=== PATIENT | male | born 1950 | race Caucasian/White ===

== ENCOUNTER 2022-01-22 14:08 | Outpatient (CLI) | payer MEDICARE, SELFPAY | END 2022-01-22 14:09 | disposition home or self-care (01) | LOC: LKVREF 14:09 | PROVIDERS: PCP Emergency Medicine; Visit Provider Emergency Medicine | DX: D50.9 Iron deficiency anemia, unspecified (principal) | CPT/HCPCS: 82728 ==

== ENCOUNTER 2022-05-11 09:19 | Outpatient (CLI) | payer MEDICARE, SELFPAY | END 2022-05-11 09:20 | disposition home or self-care (01) | LOC: NFLDREF 05-12 02:56 | PROVIDERS: PCP Emergency Medicine; Referring Provider Emergency Medicine; Visit Provider Emergency Medicine | DX: R79.89 Other specified abnormal findings of blood chemistry (principal); E78.5 Hyperlipidemia, unspecified; D50.9 Iron deficiency anemia, unspecified; R93.5 Abnormal findings on diagnostic imaging of other abdominal regions, including retroperitoneum; Z12.5 Encounter for screening for malignant neoplasm of prostate | CPT/HCPCS: 80053; 80061; 84153 ==

== ENCOUNTER 2023-10-28 10:45 | Outpatient (RCR) | payer MEDICARE, SELFPAY ==
--- NOTE | 2023-10-26 16:35 | PT.OPE ---
PT [place] Outpatient Eval PT [facility] Out[facility] Eval Start: 10/22/23 12:39 Freq: Status: Active Protocol: Document 10/22/23 12:39 BMS (Rec: 10/22/23 13:34 BMS [id number]) E-signed By Bere Grant PT Physical Therapy Outpatient Evaluation Insurance Information Recert Due Date 01/19/24 Insurance Information/Comments medicare advantage Medical Diagnosis Fusion of spine, cervica lregion M43.22 leg weakness after ACDF C3-5 2020, no radicular sx other symptoms and signs involving the musculoskeletal system R29.898 Treating Diagnosis muscle weakness generalized M62.81 abnormal gait R26.89 Referring MD Lyric Cade Subjective Subjective C3-C7 fusion At night if shift out of comfort zone (~ 20% motion) generally goes away Leaning fose Have tried different pillows, back sleeper, have tried sleeping on right side, can keep head in line and is bertter Derm recommend take ibuprofen for skin cancer removal, so tried it ibuprofen helps me get an extra couple hours of sleep Bladder rfetentionhave to cath neurogenic bladder, if cath can get fuor hours of sleep, with ibuprofen take helps me sleep prescribed anti- inflammatory cream rward makes it wor 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 function of UE has come back able to mow on lawn tractor and with car also [facility] no numb tingle , main sensation feet to knee is cold . Wear compression SPC Last fall few years ago in garage lost About 10 yearsa ago pain in R knee, frayed meniscus, did therapy here, healed enough not bothering, not a problem since surgery. Wear knee pads in on knees, Stamina and leg strength Can walk 100? 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 restricted passive mobility of L LE sony at hip, further assess to differentiate btwn spasticity, rigidity, joint restriction, and tighntess. Strength L hip flexor, quad, and HS 4/5 with tightness through hip Balance & Gait single point cane (SPC) with wide base of support, foot drop but not slap, initial contact mid foot, flat. lack of pushoff. lacks terminal knee ext and hip ext sony on L BALANCE seated with posterior lean, WBOS in standing, NBOS unsteady sit/stand balance EO wide steady, able to correct post LOB however is considerable sway unable tandem balance nor SLS Posture standing WBOS, seated sacral sit unsupported, also noted in chair low guard position for balance Sensation/Reflexes not assessed this date. 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 He reports neck fusion 1993, then plate placed 08/2020 'both from slipped discs'. Per EMR was ACDF C3-C5 complicated by prevertebral fluid August 2020, patient states he was in hospital x 2 months but wasn't until the last week or so he was there that he could really participate in therapies. He did discharge home from hospital in 2020 but has residual effects. He states his upper extremities and above the waist have mostly recovered other than significant restrictions through cspine ROM. Lower extremities he notes are weak, he has limited stamina, can walk ~ 100' then needs to rest or sit due to leg weakness, can stand ~ 5-10 minutes. Balance is also impaired though last fall he reports was a year or 2 ago. 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 He is able to navigate the flight of stairs in his home with aid of B rails that he can use simultaneously. Functional limitations include: standing, walking, LE strength, uneven ground negotiation (lives [place] farm) and neck mobility and pain with sleeping. Patient is appropriate for skilled physical therapy to address above concerns. Initial treatment consisted of strength and balance in sit to stand, patient to work on these ex for 1-2 weeks ( instructed in advancing number of reps and sets) then return for further balance and functional strength instruct. Plan of Care Rehabilitation Potential Good Rehabilitation Potential Comments motivated, stable chronic injury Physical Therapy Goals 1)Pt demo ability ascend/ descend curbs and manuever on uneven ground and small hills on his property without imbalance or increased fall risk using most appropriate assistive device. 2) Pt demo ability to pass balance testing (SLS, DGI, Fukuda etc) out of high fall risk. 3) Pt demo appropriate gait pattern with no evidence of lack of balance with perturbations internal and external for shopping, community ambulation with least restrictive or no gait aid. 4) Patient to demo ability to safely and confidently negotiate curb with no or least restrictive gait aid. 5) Pt will demo 300'-500' ambulation without limp and with best mechanics and balance to decrease risk of fall with community ambulation . Coordination/Communication With Referral Source Treatment Plan/Direct Interventions Gait Training,Manual Therapy, Neuromuscular Re-ed,Self-Care/ Home Management,Therapeutic Activities,Therapeutic Exercises Frequency/Duration 1x/1-2 weeks 12 visits Patient Will Be Discharged From Therapy Completion of LTG(s),Skills Plateau,Independent w/HEP, Independently Progressing Evaluation Billing Untimed Code Treatment Minutes 35 Complexity Low Certification Information Initial Certification Date 10/22/23 Ending Certification Date 01/19/24 Provider Signature Required Yes Provider Signature Shows Agreement With POC & Medical Necessity Physician NPI Number Write NPI# Here Physician Comment/Change : Physician Signature & Date Requested Please Sign/Date Here
== END 2024-02-25 23:59 | disposition home or self-care (01) ==
PROVIDERS: PCP Emergency Medicine; Visit Provider Emergency Medicine
DX: M43.22 Fusion of spine, cervical region (principal); R29.898 Other symptoms and signs involving the musculoskeletal system; M62.81 Muscle weakness (generalized); R26.89 Other abnormalities of gait and mobility; Z51.89 Encounter for other specified aftercare
CPT/HCPCS: 97110; 97112; 97161; 97530

== ENCOUNTER 2024-11-14 23:36 | Emergency (ER) | payer MEDICARE, SELFPAY ==
[2024-11-14 23:40] VITALS: BP 161/92; PULSE 100; RESP 18; TEMP 40.1; O2SAT 95; BMI 32.1
--- NOTE | 2024-11-14 23:55 | ED.GENADULT ---
HPI - General Adult General Chief complaint: Weakness Stated complaint: weakness Time Seen by Provider: 11/14/24 23:54 History of Present Illness HPI narrative: EMS states that pt's called 911 today because of increasing weakness. Pt self caths and has a fever. Pt reports a fall at [facility] today while picking up a new c-pap machine. He states he knew then that he was really weak . Pt has not taken anything for his fever. He self caths. 73-year-old man presenting to the emergency department with concern weakness fall. Noted to have a fever here at 104.1 upon arrival. Surgery in his neck about 30 years ago sounds like for slipped disc and then again 5 years ago. Reports that this resulted in for motor control from the waist down. Also meant that he had to catheterize though is borderline for this he reports. Finds that is much better night sleep if he can catheterize just before going to bed. Today went to chart picker his V PAP machine and had a fall. Historically he gets himself down to the ground quickly, squatting in the fall, and does not believe that he hurt anything. Has had a dry cough for very long time in the thought was that this VPAP with humidified air now might be helpful. No diarrhea. No rashes. No new cough or cold symptoms. Just generally weak. Related Data Home Medications ?Medication ?Instructions ?Recorded ?Confirmed ascorbic acid (vitamin C) 500 mg mg PO 01/22/22 10/24/24 capsule multivitamin 1 tab PO QAM 01/22/22 10/24/24 psyllium husk 0.52 gram capsule 0.52 g PO 01/22/22 10/24/24 zinc sulfate 50 mg zinc (220 mg) 50 mg PO QDAY 01/22/22 10/24/24 capsule (Orazinc) magnesium 200 mg tablet 200 mg PO QDAY PRN 05/14/22 10/24/24 melatonin 3 mg capsule 1 mg PO .Bedtime as needed PRN 05/14/22 10/24/24 tamsulosin 0.4 mg capsule (Flomax) 0.4 mg PO QDAY 05/14/22 10/24/24 ibuprofen 200 mg tablet (Advil) 200 mg PO Q6H PRN 10/13/23 10/24/24 Previous Rx's ?Medication ?Instructions ?Recorded diclofenac sodium 3 % topical gel 1 applic topical BID PRN neck pain 10/13/23 #100 grams cephalexin 500 mg capsule 500 mg PO TID 6 days #18 caps 11/15/24 nirmatrelvir 150 mg (10)-ritonavir See Rx Instructions PO .COMPLEX 11/15/24 100 mg (10) tablets in a dose pack #20 ea (Paxlovid) Allergies Allergy/AdvReac Type Severity Reaction Status Date / Time Shrimp Flavor Allergy Severe Vomiting Uncoded 10/13/23 14:28 Review of Systems Status of ROS: Reports: 6 or more systems reviewed and unremarkable except as noted in History and below [facility] Medical History Leg weakness ?R29.898 - Other symptoms and signs involving the musculoskeletal system (ICD-10) Neck pain ?M54.2 - Cervicalgia (ICD-10) 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 - Flaccid neuropathic bladder, not elsewhere classified (ICD-10) LOVELY on CPAP ?G47.33 - Obstructive sleep apnea (adult) (pediatric) (ICD-10) Neurogenic bladder ?N31.9 - Neuromuscular dysfunction of bladder, unspecified (ICD-10) Cervical vertebral fusion ?M43.22 - Fusion of spine, cervical region (ICD-10) Screening for prostate cancer ?Z12.5 - Encounter for screening for malignant neoplasm of prostate (ICD-10) Iron deficiency anemia ?D50.9 - Iron deficiency anemia, unspecified (ICD-10) History of tear of meniscus of knee joint ?Z87.828 - Personal history of other (healed) physical injury and trauma (ICD-10) History of basal cell carcinoma (BCC) ?Z85.828 - Personal history of other malignant neoplasm of skin (ICD-10) Surgical History Status post cervical spinal arthrodesis ?Z98.1 - Arthrodesis status (ICD-10) History of colonoscopy (10/17/19) ?Z98.890 - Other specified postprocedural states (ICD-10) Family History Father Aneurysm Paternal Grandmother Stroke Mother Lymphoma Other High blood pressure Social History Narrative: non smoker Does not use illicit drugs Occasional alcohol consumption Smoking Status: Never smoker Non-prescribed substance use: denies use Exam Narrative: Exam Narrative: Pleasant. NAD. Does appear tired. Is attentive and the quickly responsive to questioning. Is breathing easily. Lungs appear clear. Oropharynx is without erythema. A little sticky. Cranial nerves 2-12 intact. Neck is supple without lymphadenopathy. Heart in elevated rate and regular rhythm. No murmur noted. Extremities are without edema. Moving all extremities without difficulty. No rash appreciated. Abdomen is soft and nontender. Const: Vital Signs, click to edit/add: Vital Signs - 24 hr 11/14/24 23:40 11/15/24 00:18 11/15/24 00:35 Temperature 104.1 F H 104.1 F H Pulse Rate 96 Pulse Rate [Pulse Oximeter] 100 Respiratory Rate 18 Blood Pressure 150/124 H Blood Pressure [Ri ght Upper Arm] 161/92 H Pulse Oximetry 95 91 Oxygen Delivery Me thod Room Air 11/15/24 00:36 11/15/24 00:37 11/15/24 00:45 Temperature Pulse Rate 96 92 Pulse Rate [Pulse Oximeter] 96 Respiratory Rate 18 Blood Pressure Blood Pressure [Ri ght Upper Arm] 150/124 H Pulse Oximetry 91 90 Oxygen Delivery Me od Room Air 11/15/24 00:47 11/15/24 01:00 11/15/24 01:01 Temperature Pulse Rate 91 89 90 Pulse Rate [Pulse Oximeter] Respiratory Rate Blood Pressure 154/78 H 139/73 Blood Pressure [Ri ght Upper Arm] Pulse Oximetry 90 Oxygen Delivery Ak thod 11/15/24 01:15 11/15/24 01:16 11/15/24 01:29 Temperature 100.4 F H Pulse Rate 90 89 Pulse Rate [Pulse Oximeter] Respiratory Rate Blood Pressure 148/76 H Blood Pressure [Ri ght Upper Arm] Pulse Oximetry 90 90 Oxygen Delivery Me thod 11/15/24 01:30 11/15/24 01:32 11/15/24 01:45 Temperature Pulse Rate 88 87 86 Pulse Rate [Pulse Oximeter] Respiratory Rate Blood Pressure 137/67 Blood Pressure [Ri ght Upper Arm] Pulse Oximetry 90 Oxygen Delivery Ak thod 11/15/24 01:46 11/15/24 02:00 11/15/24 02:01 Temperature Pulse Rate 85 84 84 Pulse Rate [Pulse Oximeter] Respiratory Rate Blood Pressure 129/67 129/66 Blood Pressure [Ri ght Upper Arm] Pulse Oximetry 90 90 91 Oxygen Delivery Me thod 11/15/24 02:15 11/15/24 02:30 11/15/24 02:32 Temperature Pulse Rate 83 82 82 Pulse Rate [Pulse Oximeter] Respiratory Rate Blood Pressure 130/70 Blood Pressure [Ri ght Upper Arm] Pulse Oximetry 91 91 93 Oxygen Delivery Me thod 11/15/24 02:45 11/15/24 03:00 11/15/24 03:01 Temperature Pulse Rate 79 77 78 Pulse Rate [Pulse Oximeter] Respiratory Rate Blood Pressure 132/69 Blood Pressure [Ri ght Upper Arm] Pulse Oximetry 91 92 92 Oxygen Delivery Me thod 11/15/24 03:15 11/15/24 03:30 11/15/24 03:31 Temperature Pulse Rate 76 75 74 Pulse Rate [Pulse Oximeter] Respiratory Rate Blood Pressure 125/63 Blood Pressure [Ri ght Upper Arm] Pulse Oximetry 92 91 91 Oxygen Delivery Me thod 11/15/24 03:45 11/15/24 04:33 Temperature 98.5 F Pulse Rate 74 Pulse Rate [Pulse Oximeter] Respiratory Rate Blood Pressure Blood Pressure [Ri ght Upper Arm] Pulse Oximetry 92 Oxygen Delivery Me thod Documenting provider has reviewed patient's vital signs: yes Course Vital Signs Vital signs: Initial Vital Signs Temperature 104.1 F H 11/14/24 23:40 Temperature Source Temporal Artery Scan 11/14/24 23:40 Pulse Rate 100 11/14/24 23:40 Respiratory Rate 18 11/14/24 23:40 Blood Pressure 161/92 H 11/14/24 23:40 Blood Pressure Mean 115 H 11/14/24 23:40 Blood Pressure Position Semi-Fowlers 11/14/24 23:40 Pulse Oximetry 95 11/14/24 23:40 Oxygen Delivery Method Room Air 11/14/24 23:40 Vital Signs Temperature 104.1 F H 11/14/24 23:40 Pulse Rate 100 11/14/24 23:40 Respiratory Rate 18 11/14/24 23:40 Blood Pressure 161/92 H 11/14/24 23:40 Pulse Oximetry 95 11/14/24 23:40 Oxygen Delivery Method Room Air 11/14/24 23:40 Temperature 98.5 F 11/15/24 04:33 Pulse Rate 74 11/15/24 03:45 Respiratory Rate 18 11/15/24 00:37 Blood Pressure 125/63 11/15/24 03:31 Pulse Oximetry 92 11/15/24 03:45 Oxygen Delivery Method Room Air 11/15/24 00:37 Medications Administered Medications: Discontinued Medications Generic Name Dose Route Start Last Admin Trade Name Stuart PRN Reason Stop Dose Admin Acetaminophen 1,000 mg 11/15/24 00:12 11/15/24 00:18 Acetaminophen 500 Mg Tablet PO 11/15/24 00:13 1,000 mg ONCE ONE Administration Acetaminophen 1,000 mg 11/15/24 06:01 11/15/24 06:17 Acetaminophen 500 Mg Tablet PO 11/15/24 06:02 1,000 mg ONCE ONE Administration Sodium Chloride 1,000 mls @ 1,000 mls/hr 11/15/24 00:34 11/15/24 04:33 0.9 % Sodium Chloride 1000 Ml IV 11/15/24 01:33 Infused .Q1H ONE Infusion Ceftriaxone Sodium 1 gm/ 100 mls @ 200 mls/hr 11/15/24 05:36 11/15/24 06:34 Sodium Chloride IVPB 11/15/24 05:37 Infused ONCE ONE Infusion Medical Decision Making [facility] Narrative Medical decision making narrative: Weakness any could be related to anemia or arrhythmia but with fever up on arrival would look for infectious source. Sepsis remains in differential. Course check for urinary source. Established IV. Collect blood cultures. Received acetaminophen here along with L of fluids initially. Labs are generally reassuring though with lymphocytic suppression. Creatinine is slightly elevated at 1.7. GFR 42. CRP a little elevated 1.9; lactate is normal. COVID positive. Thankfully vitals improved with resolution of fever. Rested comfortably with stable oximetry. Oxygen saturations did depressed a little bit low as I think 88% while sleeping at inconsistent with this sleep apnea. Does alert easily. With cough history in mild depression of O2 sats, did obtain a chest x-ray which by my independent review of one-view chest showed maybe some bilateral hilar area congestion/fullness. Do not appreciate discrete infiltrate at this point. Urinalysis finally obtained does look positive for infection; nitrite positive. I do not think though that the urine is the source of the fever that we saw here today and most likely this is COVID rather than representing infection-related sepsis. No further evidence of SIRS or sepsis Radiology over-read of chest x-ray below Indication: Fever and cough. Technique: Chest 1 view. Comparison: Chest x-ray 11/02/2020. Findings/Impression: The heart is not abnormally enlarged. Mediastinal contours are grossly within normal limits. Patchy bilateral airspace opacification may reflect developing infectious process. No pleural effusion or pneumothorax. No acute osseous abnormality. Dictated by Ady Toribio MD @ 11/15/2024 12:56:41 AM Notes that he feels much better. Feels well to return home at this point. Offering Paxlovid. GFR would indicate should be dosed ?moderate?. Takes minimal medication and the only want to consider I think with relation to Paxlovid is tamsulosin. Will also treat for apparent urinary tract infection. Did give initial dose of ceftriaxone in the emergency department. See patient discharge plan for further discussion Stay well-hydrated with water. Control fever with ibuprofen or acetaminophen. I am prescribing Paxlovid for your COVID. During the time you are taking Paxlovid, please take your tamsulosin only every other day. would be to quarantine for 10 days from 1st symptom. Consider doing a home COVID test at that point to confirm clearing. Prescribing cephalexin for what appears to be a urinary tract infection as well. Urine and blood cultures are pending here. We will call you if other action needs to be taken. Return for escalating/uncontrolled fever, persistent and increasing weakness, increasing shortness of breath. Medical Records Medical records reviewed: Yes I reviewed the patient's medical records Lab Data Lab results reviewed: Yes I reviewed the patient's lab results Labs: Lab Results 11/14/24 11/15/24 11/15/24 Range/Units 00:00 00:20 04:15 WBC 6.45 (4.50-11.00) K/uL RBC 4.16 L (4.30-5.90) m/uL Hgb 13.7 (13.5-17.5) gm/dL Hct 40.7 (37.0-53.0) % MCV 98 (80-100) fL MCH 33 (26-34) pg MCHC 34 (32-36) gm/dL RDW Coeff of Faustina 12.0 (11.5-15.5) % Plt Count 103 L (140-440) K/uL Neut % (Auto) 67.5 (42.0-72.0) % Lymph % (Auto) 13.3 L (20-44) % [place] % (Auto) 18.1 H (0.0-11.0) % Eos % (Auto) 0.2 (0.0-7.0) % Baso % (Auto) 0.3 (0.0-3.0) % Neut # (Auto) 4.35 (1.7-7.0) K/uL Lymph # (Auto) 0.90 (0.90-2.90) K/uL [place] # (Auto) 1.20 H (0.00-0.90) K/UL Eos # (Auto) 0.01 (0.00-0.50) K/uL Baso # (Auto) 0.02 (0.00-0.30) K/uL Abs Immat Gran (auto) 0.04 (0.00-0.30) K/uL Imm/Tot Granulo (auto) 0.6 % Sodium 140 (135-149) mmol/L Potassium 4.0 (3.6-5.1) mmol/L Chloride 109 (96-114) mmol/L Carbon Dioxide 22 (20-32) mmol/L Anion Gap 9 (7-15) mEq/L BUN 29 (7-30) mg/dL Creatinine 1.7 H (0.5-1.5) mg/dL Estimated Creat Clear 39.99 Estimated GFR 42 ml/min Glucose 102 (60-115) mg/dL Lactate 0.8 (0.5-1.9) mmol/L Calcium 8.8 (8.4-10.6) mg/dL C-Reactive Protein 1.9 H (0.5-1.0) mg/dL Urine Color Yellow (Yellow) Urine Appearance Cloudy A (Clear) Urine pH 5.5 (5.0-8.5) Ur Specific [place] 1.020 (1.000-1.030) Urine Protein 2+ A (Negative) Urine Glucose (UA) Negative (Negative) Urine Ketones Trace A (Negative) Urine Blood 2+ A (Negative) Urine Nitrite Positive A (Negative) Urine Bilirubin Negative (Negative) Urine Urobilinogen 0.2 (0.2-1.0) Ur Leukocyte Esterase 2+ A (Negative) Urine RBC 2-5 A (0-2) Urine WBC 25-50 A (0-5) Ur Squamous Epith Cells Few (None-Few) Amorphous Sediment Few A (None) Urine Bacteria Many A (None) Urine Mucus Few A (None) Urine Yeast Moderate A (None) SARS-CoV-2 (PCR) POSITIVE SARS-CoV-2 A (Negative) Influenza Type A (PCR) Negative PCR FLU A (Negative) Influenza Type B (PCR) Negative PCR FLU B (Negative) Discharge Plan Discharge Clinical Impression: COVID, Acute UTI Patient Disposition: Home w/ Parent or Adult Condition: Improved Additional Instructions: Stay well-hydrated with water. Control fever with ibuprofen or acetaminophen. I am prescribing Paxlovid for your COVID. During the time you are taking Paxlovid, please take your tamsulosin only every other day. would be to quarantine for 10 days from 1st symptom. Consider doing a home COVID test at that point to confirm clearing. Prescribing cephalexin for what appears to be a urinary tract infection as well. Urine and blood cultures are pending here. We will call you if other action needs to be taken. Return for escalating/uncontrolled fever, persistent and increasing weakness, increasing shortness of breath. Prescriptions: New Paxlovid 150 mg (10)- 100 mg (10) tablets,dose pack See Rx Instructions .ROUTE .COMPLEX Qty: 20 0RF Rx Instructions: orally per package directions cephalexin 500 mg capsule 500 mg PO TID 6 Days Qty: 18 0RF No Action psyllium husk 0.52 gram capsule 0.52 g PO multivitamin Tablet 1 tab PO QAM ascorbic acid (vitamin C) 500 mg capsule PO zinc sulfate [Orazinc] 50 mg zinc (220 mg) capsule 50 mg PO QDAY magnesium 200 mg tablet 200 mg PO QDAY PRN tamsulosin [Flomax] 0.4 mg capsule 0.4 mg PO QDAY melatonin 3 mg capsule 1 mg PO .Bedtime as needed PRN ibuprofen [Advil] 200 mg tablet 200 mg PO Q6H PRN diclofenac sodium 3 % gel 1 applic topical BID PRN (Reason: neck pain ) Qty: 100 0RF Follow Up/Referrals: Lyric Cade MD [Staff Physician, Family Practice] Stand Alone Forms: [employer] Info Instructions
[2024-11-15] VITALS (28 sets, daily range): BP systolic 125–154; BP diastolic 63–124; PULSE 74–96; RESP 18; TEMP 36.9–40.1; O2SAT 90–93
[2024-11-15] MEDS: ACETAMINOPHEN 500 MG TABLET 1000 MG PO ×2 (00:18→06:17)
[2024-11-15 00:28] LABS: Lactate Sepsis w/Reflex* 0.8 mmol/L (0.5-1.9)
[2024-11-15 00:32] LABS: Hematocrit* 40.7 % (37.0-53.0); Hemoglobin* 13.7 gm/dL (13.5-17.5); Immature Granulocytes Abs Auto 0.04 K/uL (0.00-0.30); Immature Granulocytes Pct Auto 0.6 %; Mean Corpuscular HGB Conc 34 gm/dL (32-36); Mean Corpuscular Hemoglobin 33 pg (26-34); Mean Corpuscular Volume 98 fL (80-100); RDW Coefficient of Variation % 12.0 % (11.5-15.5); Red Blood Count* 4.16 m/uL (4.30-5.90); White Blood Count* 6.45 K/uL (4.50-11.00)
[2024-11-15 00:33] LABS: Lymphocytes Absolute Auto 0.90 K/uL (0.90-2.90); Slide Review Reflex No
--- NOTE | 2024-11-15 00:38 | CRLHL7_ITS ---
For Patients: As a result of the Cures Act, medical imaging exams and procedure reports are released immediately into your electronic medical record. You may view this report before your referring provider. If you have questions, please contact your health care provider. Indication: Fever and cough. Technique: Chest 1 view. Comparison: Chest x-ray 11/02/2020. Findings/Impression: The heart is not abnormally enlarged. Mediastinal contours are grossly within normal limits. Patchy bilateral airspace opacification may reflect developing infectious process. No pleural effusion or pneumothorax. No acute osseous abnormality. Dictated by Ady Toribio MD @ 11/15/2024 12:56:41 AM (Electronically Signed)
[2024-11-15 00:41] LABS: PCR FLU A Negative PCR FLU A (Negative); PCR FLU B Negative PCR FLU B (Negative); SARS PCR* POSITIVE SARS-CoV-2 (Negative)
--- OUTSIDE RECORDS SUMMARY | 2024-11-15 00:42 | XMS_ITS | Encounter Summary ---
Author Organization [place] Address [facility] [place] [address] Care Team Providers Care Embosser Apprentice Name Role Phone Prashant Carlson MD Unavailable [phone] Mimi Frank MD Unavailable [phone] Milan Salinas MD Unavailable Humble Dyer MD Unavailable [phone] Lyric Cade MD Primary Care Provider + [phone] Humble Dyer MD Unavailable [phone] Encounter Details Date Type Department Care Team (Late st Contact Info) Description 03/27/2024 MyC Medical Advice [facility] [place] [address] [place] [address] Lucrecia Benavidez Social History Tobacco Use Types Packs/Day Years Used Date Smoking Tobacco: Never Smokeless Tobacco: Never Alcohol Use Standard Drinks/Week Comments Yes 0 (1 standard drink = 0.6 oz pur e alcohol) once a week PHQ-2 Answer Date Recorded PHQ-2 Score 0 02/18/2022 Adolescent Education Answer Date Record ed Getting School Help Needed Not on file 11/07 Sex and Gender Information Value Date Recorded Sex Assigned at Male 10/04/2020 8:41 AM CDT Legal Sex Male 12:10 AM CDT Gender Identity Male 10/04/2020 8:41 AM CDT Sexual Orientation Straight 10/04/2020 8: 41 AM CDT documented as of this encounter Plan of Treatment Not on file documented as of this encounter Visit Diagnoses Not on filedocumented in this encounter Care Teams Embosser Apprentice Relationship Specialty Start Date End Date Lyric Cade MD [facility] [address] [place] [address] PCP - General Family Medicine 03/30/22 Prashant Carlson MD [address] [place] [address] [id number] Urology 10/23/20 Mimi Frank MD [address] [place] [address] Referring Physician Physical Medicine and Rehabilitation 10/23/20 Milan Salinas MD [address] [place] [address] Gastroenterology 01/13/21 Humble Dyer MD [address] [address] Urology 01/26/22 Humble Dyer MD [address] [place] [address] Assigned Surgical Provider 04/04/22 documented as of this encounter
--- OUTSIDE RECORDS SUMMARY | 2024-11-15 00:42 | XMS_ITS | Encounter Summary ---
Author Organization [place] Address [address] [place] [address] Care Team Providers Care Sash Installer Name Role Phone Prashant Carlson MD Unavailable [phone] Mimi Frank MD Unavailable [phone] Milan Salinas MD Unavailable Humble Dyer MD Unavailable [phone] Lyric Cade MD Primary Care Provider + [phone] Humble Dyer MD Unavailable [phone] Encounter Details Date Type Department Care Team (Late st Contact Info) Description 02/07/2024 MyC [facility] Social History Tobacco Use Types Packs/Day Years [...] on filedocumented in this encounter Care Teams Sash Installer Relationship Specialty Start Date End Date Lyric Cade MD [facility] [address] [place] [address] PCP - General Family Medicine 03/30/22 Prashant Carlson MD [address] [place] [address] Urology 10/23/20 Mimi Frank MD [address] [place] [address] Referring Physician Physical Medicine and Rehabilitation 10/23/20 Milan Salinas MD [address] [place] [address] Gastroenterology 01/13/21 Humble Dyer MD [address] [address] Urology 01/26/22 Humble Dyer MD [address] [place] [address] Assigned Surgical Provider 04/04/22 documented as of this encounter
--- OUTSIDE RECORDS SUMMARY | 2024-11-15 00:42 | XMS_ITS ---
Author Organization [facility] ([facility]) Address [address], [place] [address] Care Team Providers Care Route Driver Salesperson Name Role Phone Unavailable Unavailable Unavailable Allergies, Adverse Reactions, Alerts This patient has no known allergies or adverse reactions. Problems This patient has no known problems.
--- OUTSIDE RECORDS SUMMARY | 2024-11-15 00:42 | XMS_ITS | Encounter Summary ---
Author Organization [place] Address [address] [place] [address] Care Team Providers Care Medical Insurance Claims Processor Name Role Phone Prashant Carlson MD Unavailable [phone] Mimi Frank MD Unavailable [phone] Milan Salinas MD Unavailable Humble Dyer MD Unavailable [phone] Lyric Cade MD Primary Care Provider + [phone] Humble Dyer MD Unavailable [phone] Encounter Details Date Type Department Care Team (Late st Contact Info) Description 02/07/2024 MyC Medical [facility]ice [facility] Social History Tobacco Use Types Packs/Day [...] on filedocumented in this encounter Care Teams Medical Insurance Claims Processor Relationship Specialty Start Date End Date Lyric Cade MD [facility] [address] [place] [address] PCP - General Family Medicine 03/30/22 Prashant Carlson MD [address] [place] [address] Urology 10/23/20 Mimi Frank MD [address] [place] [address] Referring Physician Physical Medicine and Rehabilitation 10/23/20 Milan Salinas MD [address] [place] [address] Gastroenterology 01/13/21 Humble Dyer MD [address] [address] Urology 01/26/22 Humble Dyer MD [address] [place] [address] Assigned Surgical Provider 04/04/22 documented as of this encounter
--- OUTSIDE RECORDS SUMMARY | 2024-11-15 00:42 | XMS_ITS | Clinical Summary ---
Author Organization [place] Address [address] [place] [address] Care Team Providers Care Business Loan Processor Name Role Phone Prashant Carlson MD Unavailable [phone] Miim Frank MD Unavailable [phone] Milan Salinas MD Unavailable GomezHumble mariscal MD Unavailable Lyric Cade MD Primary Care Provider [phone] Humble Dyer MD Unavailable [phone] Allergies Active Allergy Reactions Criticality Noted Date Comments Shrimp GI Disturbance 08/26/2020 Shrimp Flavor Agent (Non-Screening) High 11/02/2020 Other reaction(s): vomitting/upset stomach Medications miconazole (MICATIN) 2 % external powderIndicatio ns:H/O cervical spine surgery,Cervica l myelopathy (H) Apply topically 2 times daily as needed for other or itching (redness) 71 g 1 Active VITRON-C 65-125 MG TABS tablet Take 1 tablet by mouth daily 1 Active melatonin 5 MG tablet Take 5 mg by mouth nightly as needed for sleep Active pantoprazole (PROTONIX) 40 MG EC tabletIndicatio ns:Gastrointest inal hemorrhage associated with duodenal ulcer Take 1 tablet (40 mg) by mouth daily Please do not stop this medication. Take 40-60 min before breakfast. 90 tablet 3 Active Additional Information Patient not taking.Reported on 02/18/2022 ibuprofen (ADVIL/MOTRIN) 200 MG tablet Take 200 mg by mouth every 4 hours as needed for pain Active Active Problems Problem Noted Date Diagnosed Date Abnormal computerized axial tomography of abdome n 11/07/2020 Herpes zoster 11/07/2020 History of basal cell carcinoma (BCC) 11/07/2020 History of tear of meniscus of knee joint 2020 Hyperlipidemia 11/07/2020 Sepsis 11/07/2020 Status post cervical spinal arthrodesis 11/08/19 Obstructive sleep apnea jamison chaz with continuous positive airway pressure (CPAP) 11/07/2020 H/O cervical spine surgery 09/16/2020 Post op infection 09/10/2020 Leukocytosis 09/03/2020 Diarrhea 09/03/2020 Fever 09/02/2020 Cervical myelopathy 09/01/2020 Cervical stenosis of spinal canal 08/27/2020 Overview (08/27/2020): Added automatically from request for surgery [id number] Shortness of breath 08/26/2020 Hypoxia 08/26/2020 Bilateral arm weakness 08/26/2020 History of colonoscopy 10/17/2019 Tubular adenoma of colon 10/17/2019 Arthritis 07/20/2012 Sleep apnea 06/02/2006 Resolved Problems Problem Noted Date Diagnosed Date Resolved Date S/P cervical spinal fusion 12/12/2020 1 04/06/2020 Immunizations Immunization Administration Dates Next Due Pneumo Conj 13-V (2010&after) 11/01/2019 TDAP (Adacel,Boostrix) 06/15/2016 Family History Medical History Relation Comments Lymphoma Mother Relation Status Comments Mother Social History Tobacco Use Types Packs/Day Years Used Date Smoking Tobacco: Never Smokeless Tobacco: Never Tobacco Cessation:Counseling Given: Not Answered Alcohol Use Standard Drinks/Week Comments Yes 0 (1 standard drink = 0.6 oz pur e alcohol) once a week PHQ-2 Answer Date Recorded PHQ-2 Score 0 07/17/2024 Adolescent Education Answer Date Record ed Getting School Help Needed Not on file 11/07 Sex and Gender Information Value Date Recorded Sex Assigned at Male 10/04/2020 8:41 AM CDT Legal Sex Male 12:10 AM CDT Gender Identity Male 10/04/2020 8:41 AM CDT Sexual Orientation Straight 10/04/2020 8: 41 AM CDT Last Filed Vital Signs Vital Sign Reading Time Taken Comments Blood Pressure 148/72 07/17/2024 3:30 PM CDT Pulse 75 07/19/2023 11:20 AM CDT Temperature 36.9 C (98.4 F) 11/07/2020 8:56 AM CDT Respiratory Rate 18 03/10/2021 12:49 PM HEARING AID DISPENSER Oxygen Saturation 96% 02/18/2022 9:55 AM HEARING AID DISPENSER Inhaled Oxygen Concentration - - Weight 104.3 kg (230 lb) 07/17/2024 3:30 PM CDT Height 180.3 cm (5' 11) 07/19/2023 11:20 AM CDT Body Mass Index 32.08 07/19/2023 11:20 AM CDT Plan of Treatment Health Maintenance Due Date Last Done Comments ANNUAL REVIEW OF HM ORDERS 1948 CT COLONOGRAPHY 1948 FLEX SIG 1948 LIPID 1948 sDNA (Cologuard) 1948 COLONOSCOPY 1958 HEPATITIS C SCREENING 1966 ZOSTER VACCINE (1 of 2) 1998 FALL RISK ASSESSMENT 2013 MEDICARE ANNUAL WELLNESS VISIT 2013 PNEUMOCOCCAL VACCINE 50+ YEARS (2 of 2 - PCV20 or PCV21) 10/31/2020 11/01/2019 COLORECTAL CANCER SCREENING 09/23/2021 FIT 09/23/2021 09/23/2020 RSV VACCINE (1 - 1-dose 75+ series) 11/29/2023 COVID-19 VACCINE ( - season) 2024 INFLUENZA VACCINE (#1) 2024 ADVANCE CARE PLANNING 09/20/2025 09/20/2020, 021 DTAP/TDAP/TD VACCINE (2 - Td or Tdap) 06/15/2026 06/15/2016 DIABETES SCREENING 07/18/2027 07/17/2024, 0 10/21/2020, 10/14/2020, Additional history exists PHQ-2 (once per calendar year) Completed 07/17/2024, 02/18/2022, 11/07/2020, Additional history exists HPV VACCINE (No Doses Required) Completed MENINGITIS VACCINE Aged Out No longer eligible based on patient's age to complete this topic Medical Devices Implanted Type Area Leak Operator Paraffin Plant Device Identifier Shelf Expiration Date Model / Serial / Lot Graft Bone Fibers Otero Dbm Dbf 1ml [id number] - [id number] Implanted:Qty : 1 on 08/28/2020 by Jayson Garcia MD at [facility] Bone/Tissue /Biologic N/A: Spine Cervical [employer] 05/20/2022 [id number] / [id number] / Imp Spacer Medt Cervical Anatomic Peek Ptc [id number] - [id number] Implanted:Qty : 1 on 08/28/2020 by Jayson Garcia MD at [facility] Metallic Hardware/An chor N/A: Spine Cervical [employer] 10/18/2027 [id number] / / [id number] Imp Spacer Medt Cervical Anatomic Peek Ptc [id number] - [id number] Implanted:Qty : 1 on 08/28/2020 by Jayson Garcia MD at [facility] Metallic Hardware/An chor N/A: Spine Cervical [employer] 10/18/2027 [id number] / / [id number] Imp Plate Cerv Medt Zevo 39mm 2 Lvl [id number] - [id number] Implanted:Qty : 1 on 08/28/2020 by Jayson Garcia MD at [facility] Metallic Hardware/An chor N/A: Spine Cervical [employer] [id number] / / [id number] Imp Scr Medt Zevo 3.5x15mm St Va [id number] - [id number] Implanted:Qty : 4 on 08/28/2020 by Jayson Garcia MD at [facility] Metallic Hardware/An chor N/A: Spine Cervical [employer] [id number] / / [id number] Imp Scr Medt Zevo 3.5x17mm St Va [id number] - [id number] Implanted:Qty : 2 on 08/28/2020 by Jayson Garcia MD at [facility] Metallic Hardware/An chor N/A: Spine Cervical [employer] [id number] / / [id number] Procedures Procedure Name Priority Date/Time Associated Diagnosis Comments BASIC METABOLIC PANEL Routine 07/17/2024 4:04 PM CDT Hypocontractile bladder OCCULT BLOOD STOOL Routine 09/23/2020 8: 28 PM CDT from Last 3 Months or Most Recently Relevant to Health Maintenance Results * (ABNORMAL) Basic metabolic panel [LAB15] (07/17/2024 4:04 PM CDT) Sodium 144 135 - 145 mmol/L 07/18/2024 1:19 AM CDT [facility] Potassium 4.2 3.4 - 5.3 mmol/L 07/18/2024 1:19 AM CDT [facility] Chloride 111(H) 98 - 107 mmol/L 07/18/2024 1:19 AM CDT [facility] Carbon Dioxide (CO2) 22 22 - 29 mmol/L 07/18/2024 1:19 AM CDT [facility] Anion Gap 11 7 - 15 mmol/L 07/18/2024 1:19 AM CDT [facility] Urea Nitrogen 26.5(H) 8.0 - 23.0 mg/dL 07/18/2024 1:19 AM CDT [facility] Creatinine 1.56(H) 0.67 - 1.17 mg/dL 07/18/2024 1:19 AM CDT [facility] GFR Estimate 46(L) >60 mL/min/1.7 3m2 07/18/2024 1:19 AM CDT [facility] Comment:eGFR calculated us2020 CKD-EPI equation. Calcium 9.7 8.8 - 10.4 mg/dL 07/18/2024 1:19 AM CDT [facility] Glucose 71 70 - 99 mg/dL 07/18/2024 1:19 AM CDT [facility] Blood BLOOD SPECIMEN / Unknown Venipuncture / Unknown 07/17/2024 4:04 PM CDT 07/17/2024 4:04 PM CDT us Humble Dyer MD LAB - BLOOD ORDERABLES Fin al Result [facility] [facility] [address] [facility], [address] [place] [address], [facility] * (ABNORMAL) Occult blood stool (09/23/2020 8:28 PM CDT) Occult Blood Positive(A ) Negative STORMY 09/23/2020 9:22 PM CDT [facility] Stool RECTAL CONTENTS / Unknown Non-blood Collection / Unknown 09/23/2020 8:28 PM CDT 09/23/2020 8:51 PM CDT us Ankush Arthur MD LAB - STOOLS ORDERABLES Final Result [facility] [address] 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 Advance Directives and Living Will 09/20/2020 Health Care Directiv e 09/20/2020 * Full Code (Latest Code Status on File) Date Activated Date Inactivated Comments 09/16/2020 2:44 PM 10/24/2020 1:43 PM All basic and advanced life-sustaining interventions are performed as appropriate Question Answer Comments Code status determined by: Discussion with patie nt/ legal decision maker * Full Code Date Activated Date Inactivated Comments 09/10/2020 6:13 PM 09/16/2020 2:01 PM All basic and advanced life-sustaining interventions are performed as appropriate Question Answer Comments Code status determined by: Discussion with patie nt/ legal decision maker * Full Code Date Activated Date Inactivated Comments 09/10/2020 2:48 PM 09/10/2020 5:21 PM Question Answer Comments Code status determined by: Discussion with patie nt/ legal decision maker * Full Code Date Activated Date Inactivated Comments 09/01/2020 2:36 PM 09/10/2020 2:48 PM All basic an d advanced life-sustaining interventions are performed as appropriate Question Answer Comments Code status determined by: Discussion with patie nt/ legal decision maker * Full Code Date Activated Date Inactivated Comments 08/28/2020 3:59 PM 09/01/2020 2:27 PM All basic an d advanced life-sustaining interventions are performed as appropriate Question Answer Comments Code status determined by: Unable to dis cuss and no AD/POLST on file; continue PREVIOUSLY ORDERED code status Healthcare Agents on File Name Relationship Healthcare Agent Relationship Communication Erum Astudillo Spouse Health Care Agent [email or web address] Payment Ivana Leija [facility] Care Agent Care Teams Business Loan Processor Relationship Specialty Start Date End Date Lyric Cade MD [facility] [address] [place] [address] PCP - General Family Medicine 03/30/22 Prashant Carlson MD [address] [place] [address] Urology 10/23/20 Mimi Frank MD [address] [place] [address] Referring Physician Physical Medicine and Rehabilitation 10/23/20 Milan Salinas MD [address] [place] [address] Gastroenterology 01/13/21 Humble Dyer MD [address] [address] Urology 01/26/22 Humble Dyer MD [address] [place] [address] Assigned Surgical Provider 04/04/22
[2024-11-15 00:52] LABS: Chloride* 109 mmol/L (96-114); Potassium* 4.0 mmol/L (3.6-5.1); Sodium* 140 mmol/L (135-149)
[2024-11-15 00:55] LABS: Anion Gap 9 mEq/L (7-15); Blood Urea Nitrogen* 29 mg/dL (7-30); Calcium* 8.8 mg/dL (8.4-10.6); Carbon Dioxide* 22 mmol/L (20-32); Creatinine* 1.7 mg/dL (0.5-1.5); Est. Creatinine Clearance* 39.99; Estimated Glomerular Filt Rate 42 ml/min; Glucose* 102 mg/dL (60-115)
[2024-11-15 04:22] LABS: Appearance Urine Cloudy (Clear)
[2024-11-15] MEDS: cefTRIAXone 1 GM in 0.9 % SODIUM CHLORIDE Mini-bag 100 ML IVPB (05:59)
== END 2024-11-15 07:15 | disposition home or self-care (01) ==
PROVIDERS: Emergency Provider Family Medicine; PCP Physician Assistant Medical
DX: U07.1 COVID-19 (principal); N39.0 Urinary tract infection, site not specified
CPT/HCPCS: 36415; 71045; 80048; 81001; 83605; 85025; 86140; 87040; 87086; 87636; 96365; 99284; A9270; J0696; J7030

== ENCOUNTER 2024-12-07 13:55 | Outpatient (CLI) | payer MEDICARE, SELFPAY | END 2024-12-07 13:56 | disposition home or self-care (01) | PROVIDERS: PCP Physician Assistant Medical; Visit Provider Physician Assistant Medical | DX: R53.1 Weakness (principal) | CPT/HCPCS: 82607; 86140 ==

== ENCOUNTER 2024-12-11 16:16 | Outpatient (CLI) | payer MEDICARE, SELFPAY | END 2024-12-11 16:17 | disposition home or self-care (01) | LOC: NFLDREF 12-13 19:15 | PROVIDERS: PCP Physician Assistant Medical; Referring Provider Physician Assistant Medical; Visit Provider Physician Assistant Medical | DX: M54.2 Cervicalgia (principal); R29.898 Other symptoms and signs involving the musculoskeletal system; R53.1 Weakness | CPT/HCPCS: 87086; 87186 ==